=== PATIENT | male | born 1990 | race Caucasian/White ===

== ENCOUNTER 2017-12-15 20:42 | Emergency (ER) | payer OTHER ==
--- NOTE | 2017-12-15 23:13 | ER Document Report ---
ED ENT - General Chief Complaint: Congestion Stated Complaint: COLD SYMPTOMS Time Seen by Provider: 12/15/17 23:02 Mode of Arrival: Ambulatory Information source: Patient TRAVEL OUTSIDE OF THE [place] IN LAST 30 DAYS: No - HPI Patient complains to provider of: Nose problem Onset: Other - 3 months Onset/Duration: Gradual Associated symptoms: Sinus pain, Sinus drainage Notes: Patient arrives with complaints of left nasal congestion for approximately 3 months. States that starting have some pain in this area. States that he did a rinse of the left nostril and now he starting to have left ear pain and is concerned he did something to his ear. He denies any fevers today, but states that he has been feeling somewhat flulike symptoms over the last few days. He denies any nausea, vomiting, diarrhea. He denies any injury. He denies any rashes. He denies any blurred or loss vision. He denies any unilateral numbness, tingling, weakness. No chest pain or shortness of breath. He has not been on any antibiotics and has not been seen for this in the past. - Related Data Allergies/Adverse Reactions: latex [Latex] Allergy (Mild, Verified 02/22/12 08:39) Past Medical History - Social History Smoking Status: Unknown if Ever Smoked Family History: Reviewed & Not Pertinent Pulmonary Medical History: Reports: Hx Asthma - Immunizations Hx Diphtheria, Pertussis, Tetanus Vaccination: Yes Review of Systems - Review of Systems -: Yes All other systems reviewed and negative Physical Exam - Vital signs Vitals: Temp Pulse BP Pulse Ox 97.7 F 69 146/77 H 97 12/15/17 21:22 12/15/17 21:22 12/15/17 21:22 12/15/17 21:22 - Notes Notes: GENERAL: alert, cooperative, nontoxic, no distress. HEAD: normocephalic, atraumatic EYES: conjunctiva pink without discharge, no external redness or swelling. EARS: no external swelling, no external redness, no mastoid redness, swelling, tenderness. Ear canals are clear without swelling or drainage. TMs pearly javed , no redness, no bulging, normal landmarks, no perforation. TM is noted to have effusion behind the TM. NOSE: atraumatic, no external swelling. Purulent rhinorrhea from the left nare with swollen nasal turbinates and erythema. No foreign body identified. No obvious mass. MOUTH/THROAT: mucous membranes moist and pink, posterior pharynx without erythema, swelling, exudate. No trismus or drooling. NECK: soft, supple, full range of motion, no meningismus. CHEST: no distress, lungs clear and equal throughout. No wheezing, rales, rhonchi. CARDIAC: regular rate and rhythm, no murmur, normal capillary refill, normal pulses. No peripheral edema noted. BACK: full range of motion, no CVA tenderness. EXTREMITIES: full range of motion of all extremities. No redness, no swelling. NEURO: alert and oriented A&O3, no focal deficits, full range of motion of all extremities. PYSCH: appropriate mood, affect. Patient is cooperative. SKIN: pink, warm, dry, no rash. Course - Re-evaluation Re-evalutation: 12/15/17 23:10 Patient is nontoxic appearing with stable vitals he has had congestion and drainage from the left side of his nostril for about 3 months now. This seems to be getting worse. He is noted to have purulent drainage from the left nare. Left ear shows a clear effusion with no perforation or otitis media. Based on the fact that the patient has been symptomatic for 3 months and has purulent drainage from the left nare, I will place him on antibiotics for sinusitis. He will also be prescription prescribed Flonase and was instructed that he could try [id number] Mucinex D as well for his congestion. The patient is noted to have elevated blood pressure during today's emergency department visit. The patient was informed of this finding. The patient was instructed that this may be related to pre-hypertension and requires further evaluation with a primary care provider. The patient has no hypertensive symptoms at this time. The patient's emergency department workup and current diagnosis were explained to the patient and or family. Follow-up instructions were provided. Medications if prescribed were discussed. Instructions for when to return to the emergency department including specific worrisome symptoms were discussed with the patient and/or family. - Vital Signs Vital signs: Temp Pulse Resp BP Pulse Ox 97.7 F 69 146/77 H 97 12/15/17 21:22 12/15/17 21:22 12/15/17 21:22 12/15/17 21:22 Discharge - Discharge Clinical Impression: Sinusitis Qualifiers: Sinusitis location: frontal Chronicity: acute Recurrence: non-recurrent Qualified Code(s): J01.10 - Acute frontal sinusitis, unspecified Condition: Stable Disposition: HOME, SELF-CARE Instructions: Sinusitis ([facility]) Additional Instructions: Take medications as prescribed. Tylenol and Motrin as needed for pain or fever. Drink plenty of fluids. Follow-up if not better in 1 week, sooner for increasing pain, fever, persistent vomiting, facial swelling, or for any further concerns. Your blood pressure was elevated during today's visit. Have this rechecked with your doctor. Prescriptions: Amoxicillin 875 mg PO BID #20 tablet Fluticasone Propionate [Flonase Nasal [place] 50 Mcg/[place] 16 gm] 1 spray NASL Q12 #1 inhaler Forms: Elevated Blood Pressure, Smoking Cessation Education Referrals: [facility] [Provider Group] - Follow up as needed
[2017-12-15 23:22] VITALS: BP 130/76
== END 2017-12-15 23:21 | disposition home or self-care (01) ==
LOC: ER 20:42
DX: J01.10 Acute frontal sinusitis, unspecified (principal); R09.81 Nasal congestion; H92.02 Otalgia, left ear
CPT/HCPCS: 99283

== ENCOUNTER 2018-05-18 03:19 | Emergency (ER) | payer OTHER ==
[2018-05-18] MEDS ORDERED: METHYLPREDNISOLONE INJ 125 MG/2 ML SDV IV ONE (03:44)
[2018-05-18] MEDS ORDERED: FAMOTIDINE INJ/PF 20 MG/2 ML SDV IV ONE (03:44)
[2018-05-18] MEDS ORDERED: EPINEPHRINE INJ/PF 1 MG/1 ML AMPULE IM ONE (03:44)
[2018-05-18] MEDS ORDERED: DIPHENHYDRAMINE HCL 50 MG/ML VIAL IV ONE (03:45)
--- NOTE | 2018-05-18 03:50 | ER Document Report ---
ED Allergic Reaction - General Chief Complaint: Hives Stated Complaint: RASH Time Seen by Provider: 05/18/18 03:40 Mode of Arrival: Ambulatory Information source: Patient Notes: Patient is a 27-year-old male who presents with complaint of hives. Patient reports that this is been going on for about 6 hours now. Patient reports that he has had hives multiple times, he usually takes Benadryl which typically relieves the hives. This time he took Benadryl at about midnight with only mild relief. Patient unsure of what he is allergic to. Patient reports of the first time he had a allergic reaction similar to this was about 6 months ago. On initial examination patient is speaking in complete sentences, lung sounds are clear with no wheezing, airway patent no swelling noted. Patient does have lip swelling, mildly hoarse voice and hives scattered throughout his torso, patient does show me a photo on his phone of hives from 2-3 hours ago and they have increased significantly. TRAVEL OUTSIDE OF THE [place] IN LAST 30 DAYS: No - Related Data Allergies/Adverse Reactions: latex [Latex] Allergy (Mild, Verified 05/18/18 03:20) Past Medical History - General Information source: Patient - Social History Smoking Status: Never Smoker Frequency of alcohol use: None Drug Abuse: None Family History: Reviewed & Not Pertinent - Medical History Medical History: Negative Pulmonary Medical History: Reports: Hx Asthma - Childhood Surgical Hx: Negative - Immunizations Immunizations up to date: Yes Hx Diphtheria, Pertussis, Tetanus Vaccination: Yes Review of Systems - Review of Systems Constitutional: No symptoms reported EENT: No symptoms reported Cardiovascular: No symptoms reported Respiratory: No symptoms reported. denies: Short of breath, Wheezing Gastrointestinal: No symptoms reported Genitourinary: No symptoms reported Male Genitourinary: No symptoms reported Musculoskeletal: No symptoms reported Skin: Other - Hives Hematologic/Lymphatic: No symptoms reported Neurological/Psychological: No symptoms reported Physical Exam - Vital signs Vitals: Temp Pulse Resp BP Pulse Ox 97.7 F 60 20 143/81 H 99 05/18/18 03:24 05/18/18 03:24 05/18/18 03:24 05/18/18 03:24 05/18/18 03:24 - Notes Notes: PHYSICAL EXAMINATION: GENERAL: Well-appearing, well-nourished and in no acute distress. HEAD: Atraumatic, normocephalic. Mild swelling noted to lip. EYES: Pupils equal round and reactive to light, extraocular movements intact, sclera anicteric, conjunctiva are normal. ENT: Nares patent, oropharynx clear without exudates. Moist mucous membranes. NECK: Normal range of motion, supple without lymphadenopathy LUNGS: Breath sounds clear to auscultation bilaterally and equal. No wheezes rales or rhonchi. HEART: Regular rate and rhythm without murmurs ABDOMEN: Soft, nontender, nondistended abdomen. No guarding, no rebound. No masses appreciated. Musculoskeletal: Normal range of motion, no pitting or edema. No cyanosis. NEUROLOGICAL: Cranial nerves grossly intact. Normal speech, normal gait. Normal sensory, motor exams PSYCH: Normal mood, normal affect. SKIN: Warm, Dry, normal turgor, hives scattered across torso, bilateral arms and a few on patient's legs. Course - Re-evaluation Re-evalutation: Otherwise healthy 27-year-old male presents with chief complaint of acute allergic reaction. Patient is unsure what he is allergic to. Patient states he has had similar episode in the past. Patient is maintaining his own airway, patient does have a mildly hoarse voice and there is some lip swelling however patient is speaking in full and complete sentences. Patient will be placed on rn cardiac cath, patient will be given IV Solu-Medrol, IV Benadryl, IV Pepcid and IM epinephrine. Patient was monitored for approximately 2 hours, patient had nearly complete resolution of all of his symptoms. Patient will be discharged on prednisone, Pepcid and will also be given prescription for EpiPen. Patient encouraged to follow-up with learning and development associate to find out what he is allergic to so he can avoid it. Patient does understand ED return precautions. Patient denies any questions and verbalizes understanding of plan of care. - Vital Signs Vital signs: Temp Pulse Resp BP Pulse Ox 97.7 F 60 16 107/52 L 98 05/18/18 03:24 05/18/18 03:24 05/18/18 05:31 05/18/18 05:31 05/18/18 05:31 Discharge - Discharge Clinical Impression: Acute allergic reaction Qualifiers: Encounter type: initial encounter Qualified Code(s): T78.40XA - Allergy, unspecified, initial encounter Condition: Stable Disposition: HOME, SELF-CARE Additional Instructions: Acute Allergic Reaction Your symptoms are due to an allergic reaction. Allergy can cause hives, swelling of the hands, feet, and face, hoarseness, and difficulty swallowing or breathing. It may be due to exposure to medication, animal dander, foods, infection, or insect bites. Medication is a common cause, even when prior use of this same medication caused no problems. Acute treatment may include adrenalin and antihistamines. Usually, the specific allergic agent can't be identified unless repeated episodes occur. Home treatment includes the following: (1) Stop any suspicious medications. This will be discussed with you. (2) Oral antihistamines for the next four to five days. Example, diphenhydramine (Benadryl) every four hours. (3) You may also use cimetidine (Tagamet), ranitidine (Zantac), or famotidine (Pepcid) every four hours if diphenhydramine is not controlling itching and hives. (4) Avoid aspirin until the hives completely disappear. (5) Avoid hot bahs or showers until the hives are completely gone. Call the doctor if faintness, difficulty swallowing, tightness in the chest, or wheezing occurs. Please take medications as prescribed. Please follow-up with an learning and development associate. Is very important that you find out what you are allergic to so that you can avoid it. Please use the EpiPen if needed, I would suggest using it if you develop a similar episode as you did not this morning. If you have to use her EpiPen, please present to the emergency department, come via EMS if you do not have anyone to drive you. Prescriptions: Epinephrine [Epipen] 0.3 mg IJ PRN PRN #2 [id number].[email or web address] PRN Reason: Per Protocol Famotidine [Pepcid 40 mg Tablet] 40 mg PO BID #20 tablet Prednisone 10 mg PO ASDIR #21 tablet
[2018-05-18 05:54] VITALS: BP 107/52
== END 2018-05-18 06:04 | disposition home or self-care (01) ==
LOC: ER 03:19
DX: T78.40XA Allergy, unspecified, initial encounter (principal); R21 Rash and other nonspecific skin eruption; X58.XXXA Exposure to other specified factors, initial encounter; Z91.040 Latex allergy status
CPT/HCPCS: 99283; 96372; 96374; 96375; J1200; J0171; J2930; S0028

== ENCOUNTER 2019-03-31 09:51 | Emergency (ER) | payer BC, OTHER ==
[2019-03-31 10:10] VITALS: BP 136/73
--- NOTE | 2019-03-31 10:10 | ER Document Report ---
HPI - HPI Pain Level: 3 Notes: Patient is a 28-year-old male with no significant past medical history aside from seasonal allergies who presents to the emergency department complaining of feeling nasally congested on the left side over the past month, but worsened over the past 7 days. Patient states that he has been to multiple healthcare providers this week, urgent cares, and they have been placing him on antibiotics for possible abscess. Patient states that he does not have any pain associated, but does have a bump inside of his nostril. He is otherwise eating and drinking without difficulty. He is urinating normally. Denies drug allergies. Denies any headache, fever, head injury, neck pain, URI, sore throat, chest pain, palpitations, syncope, cough, shortness of breath, wheeze, dyspnea, abdominal pain, nausea/vomiting/diarrhea, urinary retention, dysuria, hematuria, or rash. - ROS Systems Reviewed and Negative: Yes All other systems reviewed and negative - REPRODUCTIVE Reproductive: DENIES: : - DERM Skin Color: Normal <MAXIMILIANO GONGORA - Last Filed: 03/31/19 10:05> <RYAN MORATAYA - Last Filed: 03/31/19 10:18> - HPI Time Seen by Provider: 03/31/19 09:56 Past Medical History - Social History Smoking Status: Current Some Day Smoker Family History: Reviewed & Not Pertinent Patient has suicidal ideation: No Patient has homicidal ideation: No Pulmonary Medical History: Reports: Hx Asthma - Childhood Renal/ Medical History: Denies: Hx Peritoneal Dialysis Past Surgical History: Reports: Hx Tonsillectomy - Immunizations Immunizations up to date: Yes Hx Diphtheria, Pertussis, Tetanus Vaccination: Yes <MAXIMILIANO GONGORA - Last Filed: 03/31/19 10:05> Vertical Provider Document - CONSTITUTIONAL Agree With Documented VS: Yes Notes: PHYSICAL EXAMINATION: GENERAL: Well-appearing, well-nourished and in no acute distress. A&Ox4. Answers questions appropriately. Moves comfortably w/o notable distress HEAD: Atraumatic, normocephalic. EYES: Pupils equal round and reactive to light, extraocular movements intact, sclera anicteric, conjunctiva are normal. ENT: EAC clear b/l. TM's intact b/l without erythema, fluid, or perforation. Left nare has a javed colored semi-firm mass palpated w/o any tenderness, erythema, or purulence consistent with polyp. It does occlude the left nare. Rt Nare is patent. oropharynx no erythema without exudates. No tonsilar hypertrophy without erythema or exudate. No palatine shift. Uvula midline. No tongue protrusion. No drooling, hoarseness, or airway compromise. Moist mucous membranes. No sinus tenderness. NECK: Normal range of motion, supple without lymphadenopathy. No rigidity/meningismus. LUNGS: Breath sounds clear to auscultation bilaterally and equal. No wheezes rales or rhonchi. No retractions HEART: Regular rate and rhythm without murmurs, rubs, gallops. NEUROLOGICAL: Normal speech, normal gait. PSYCH: Normal mood, normal affect. SKIN: Warm, Dry, normal turgor, no rashes or lesions noted. - INFECTION CONTROL TRAVEL OUTSIDE OF THE [place] IN LAST 30 DAYS: No <MAXIMILIANO GONGORA - Last Filed: 03/31/19 10:05> Course - Re-evaluation Re-evalutation: 03/31/19 10:07 Dr. Morataya also eval'd the patient who agrees with dispo/plan. Patient is an afebrile, well-hydrated, 28-year-old male who presents to the emergency department with a polyp to his left nare. Vitals are acceptable without significant tachycardia, tachypnea, or hypoxia. PE is otherwise unremarkable. Patient is nontoxic-appearing and is tolerating p.o. without difficulty. No evidence of infection or abscess warranting incision and drainage. No labs or imaging warranted at this time. Low suspicion for any meningitis, sepsis, peritonsillar/pharyngeal abscess, respiratory compromise, or other emergent systemic condition at this time. Patient is aware this condition can change from initial presentation and he needs to monitor symptoms closely. Conservative measures otherwise for symptoms. Recheck with your PCM in 2-3 days. Call ENT tomorrow to schedule an appointment for further evaluation and management. Return to the ED with any worsening/concerning symptoms otherwise as reviewed in discharge. Patient is in agreement. - Vital Signs Vital signs: Temp Pulse Resp BP Pulse Ox 98 F 63 18 153/82 H 97 03/31/19 09:52 03/31/19 09:52 03/31/19 09:52 03/31/19 09:52 03/31/19 09:52 <MAXIMILIANO GONGORA - Last Filed: 03/31/19 10:05> - Re-evaluation Re-evalutation: 03/31/19 10:15 I personally and independently obtained patient history and examined the patient in conjunction with the APC and agree with the assessment, treatment plan and disposition of the patient as recorded by the APC, and have reviewed the APC's note. HISTORY OF PRESENT ILLNESS: Patient is a 28-year-old male that presents to the emergency department for chief complaint of nasal congestion, and concern for abscess in his left nares. Patient states he noticed about a week ago, he had fullness in his left nostril, he has been having seasonal allergies, taking Claritin, has had seasonal allergies for many years now, and about a month ago when he noticed more congestion. ROS: Constitutional: Negative for fever. Cardiovascular: Negative for chest pain. Respiratory: Negative for shortness of breath. Gastrointestinal: Negative for vomiting or abdominal pain Musculoskeletal: Negative for arm, leg or back pain Skin: Negative for rash. Neurological: Negative for weakness or numbness. Other than noted above, the 12 point review of systems was reviewed with the patient and were negative, all pertinent findings are included in the HPI. PHYSICAL EXAMINATION: Vital signs reviewed, nursing noted reviewed. GENERAL: Well-appearing, well-nourished and in no acute distress. HEAD: Atraumatic, normocephalic. EYES: Eyes appear normal, conjunctiva are normal. ENT: The left nostril had a moderate sized nasal polyp on the middle turbinate, no bleeding at this time, no active drainage, oropharynx clear without exudates. Moist mucous membranes. NECK: Normal range of motion, supple without lymphadenopathy LUNGS: No respiratory distress PSYCH: Normal mood, normal affect. SKIN: Warm, Dry, normal turgor, no rashes or lesions noted on exposed skin MEDICAL DECISION MAKING: Patient seen and examined, vital signs reviewed, patient appears well on exam, this is most consistent with a nasal polyp of the left nares, recommend seeing ENT, and topical steroid such as Flonase or Nasacort, until he is able to be seen by them and likely have operative intervention. Please review detail APC documentation. *Note is created using voice recognition software and may contain spelling, syntax or grammatical errors. - Vital Signs Vital signs: Temp Pulse Resp BP Pulse Ox 98 F 60 18 136/73 H 97 03/31/19 10:04 03/31/19 10:04 03/31/19 10:04 03/31/19 10:04 03/31/19 10:04 <RYAN MORATAYA - Last Filed: 03/31/19 10:18> Discharge <MAXIMILIANO GONGORA - Last Filed: 03/31/19 10:05> <RYAN MORATAYA - Last Filed: 03/31/19 10:18> - Discharge Clinical Impression: Polyp of left nasal cavity Condition: Stable Disposition: HOME, SELF-CARE Additional Instructions: Maintain adequate fluid intake tylenol/ibuprofen as needed over the counter cold medication as needed for symptoms (i.e. allergy medicine) Wash your hands regularly F/u: with your PCM in 2-3 days for a recheck or as needed otherwise Call ENT on Monday to schedule an appointment for further evaluation and management Return to the ED with any fever, altered mental status/behavior, chest pain, palpitations, syncope, headache, neck pain/stiffness, shortness of breath, chest pains, wheezing, drooling, trouble swallowing/breathing, abdominal pain, n/v/d, rash, or worsening/concerning symptoms otherwise. Prescriptions: Fluticasone Propionate [Flonase Nasal [place] 50 Mcg/[place] 16 gm] 1 spray NASL Q12 #1 inhaler Forms: Elevated Blood Pressure Referrals: JOSE MIGUEL LARA MD [ACTIVE STAFF] - Follow up in 3-5 days
== END 2019-03-31 10:04 | disposition home or self-care (01) ==
LOC: ER 09:51
DX: J33.0 Polyp of nasal cavity (principal); F17.200 Nicotine dependence, unspecified, uncomplicated; J30.2 Other seasonal allergic rhinitis; Z79.899 Other long term (current) drug therapy
CPT/HCPCS: 99282